=== PATIENT | female | born 1995 | race Caucasian/White ===

== ENCOUNTER 2021-12-27 07:08 | Emergency (ER) | payer SELFPAY ==
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
--- NOTE | 2021-12-27 07:37 | PC.NURSE ---
pt seen ambulating out of emergency dept.
== END 2021-12-27 07:37 | disposition left against medical advice (07) ==
LOC: ANHED 08:10
DX: Z53.21 Procedure and treatment not carried out due to patient leaving prior to being seen by health care provider (principal)
CPT/HCPCS: 99199

== ENCOUNTER 2023-09-03 09:30 | Emergency (ER) | payer OTHER, SELFPAY ==
--- NOTE | ~2023-09-03 | CT_ITS ---
EXAMINATION: CT abdomen pelvis wo con DATE: 09/03/2023 13:12 INDICATION: Abdominal and pelvic pain. TECHNIQUE: Computed tomography (CT) of the abdomen and pelvis was performed without intravenous contr ast. Automated exposure control and iterative reconstruction technique were employed. The dose-length product was 454.63 mGy-cm. COMPARISON: None. FINDINGS: The visualized portions of the lung bases are clear without pneumonia or pleural effusion. The heart size is normal. No pericardial effusion. The liver, gallbladder, spleen, pancreas, adrenal glands, and kidneys are normal. There is no urolithiasis. There are no dilated loops of bowel. The ap pendix is normal. There are no pathologically enlarged lymph nodes. There is physiologic fluid in the pelvis. There is mild lumbar spondylosis. IMPRESSION: 1. No etiology for the patient's symptoms. Reviewed, dictated and finalized at location [facility]. [employer]
[2023-09-03 09:40] VITALS: BP 134/72; PULSE 91; RESP 16; TEMP 36; O2SAT 100
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
[2023-09-03] MEDS: SODIUM CHLORIDE 0.9% IV 1,000 ML 999 ML IV CONT (10:43)
[2023-09-03] MEDS: MORPHINE SULFATE (*CRX) 2 MG/ML INJ IV PUSH (10:44)
[2023-09-03 10:51] LABS: Basophils Percent Auto 0.6 % (0.2-1.2); Eosinophils Absolute Auto 0.1 K/mm3 (0-0.3); Hematocrit 38.9 % (37.0-47.0); Hemoglobin 13.3 g/dL (12.0-15.0); Immature Granulocyte Absolute 0.01 K/mm3 (0.00-0.031); Immature Granulocyte Percent A 0.1 % (0-0.5); Lymphocytes Percent Auto 35.5 % (18.3-44.2); Mean Corpuscular HGB Conc 34.2 g/dl (32-36); Mean Corpuscular Hemoglobin 30.4 pg (26-34); Mean Corpuscular Volume 88.8 fl (80-100); Mean Platelet Volume 10.6 fl (7.4-10.4); Monocytes Absolute Auto 0.5 K/mm3 (0.1-0.6); Neutrophils Absolute Auto 3.9 K/mm3 (1.3-6.7); Neutrophils Percent Auto 54.8 % (45.5-73.1); Platelet Count Result 218 k/mm3 (150-375); Red Blood Count 4.38 M/mm3 (4.2-5.4); Red Cell Distribution Width 12.5 % (11.5-14.5)
[2023-09-03 11:03] LABS: Alanine Aminotransferase 14 U/L (6-35); Albumin Level 3.8 g/dL (3.5-5.1); Alkaline Phosphatase 54 U/L (38-126); Anion Gap 6 mmol/L (8-16); Aspartate Amino Transferase 19 U/L (14-36); Bilirubin,Total 0.5 mg/dL (0.2-1.3); Blood Urea Nitrogen 13 mg/dL (7-17); Calcium 8.9 mg/dL (8.4-10.2); Carbon Dioxide 27 mmol/L (22-30); Chloride 106 mmol/L (98-107); Estimated CRCL calculation 95 ml/min; Estimated Glomerular Filt Rate > 60; Glucose 63 mg/dL (65-110); Lipase 30 U/L (23-300); Potassium 3.5 mmol/L (3.4-5.0); Sodium 139 mmol/L (137-145)
[2023-09-03 11:21] LABS: Amorphous Sediment Urine Present; Appearance Urine Turbid (Clear); Bacteria Urine Rare /hpf; Bilirubin Urine Negative (Negative); Blood Urine Negative (Negative); Color Urine Yellow (Yellow); Glucose Urine UA Negative (Negative); Ketones Urine Negative (Negative); Leukocyte Esterase Ur Trace LEU/UL (Negative); Need Manual Microscopic Need Manual; Nitrate Urine Negative (Negative); Non Pathogenic Casts 0-2; Protein Urine Negative (Negative); Specific Grav Ur 1.021 (1.001-1.035); Squamous Epithelial Cell Urine Moderate /hpf (Few); pH Urine 7.5 (5.0-9.0)
[2023-09-03 11:29] LABS: Budding Yeast Urine Present /hpf
[2023-09-03 11:30] LABS: Add Urine Microscopic? YES
== END 2023-09-03 13:58 | disposition home or self-care (01) ==
PROVIDERS: Emergency Provider Nurse Practitioner Family
DX: N30.01 Acute cystitis with hematuria (principal); B37.31 Acute candidiasis of vulva and vagina
CPT/HCPCS: 36415; 74176; 80053; 81001; 81025; 83690; 85025; 87086; 87088; 96361; 96374; 99284; J2270; J7030

== ENCOUNTER 2023-12-16 16:17 | Emergency (ER) | payer SELFPAY ==
[2023-12-16 16:28] VITALS: BP 129/84; PULSE 65; RESP 18; TEMP 37.3; O2SAT 98
--- NOTE | 2023-12-16 16:29 | ED.PSYCH ---
HPI - Psych General Chief Complaint: Psychiatric Symptoms Stated Complaint: abn behavior Time Seen by Provider: 12/16/23 16:19 History of Present Illness HPI Narrative: Patient presenting here via EMS after using meth and she is telling me that she wants to see a therapist. She is denying any thoughts about hurting herself or anyone else, and she did also tell it ER nursing staff that she does not want to her herself or anyone. She just wants to see a therapist here. Denies any somatic complaints. Related Data Allergies Allergy/AdvReac Type Severity Reaction Status Date / Time Penicillins Allergy Swelling Verified 09/03/23 10:39 Review of Systems Review of Systems: CONST: No fever. HEENT: No sore throat C/V: No chest pain RESP: No cough GI: Reports abdominal pain, nausea, vomiting[, diarrhea] : No dysuria. M/S: No joint pain. SKIN: No rash. NEURO: [No headache or focal numbness or weakness] PSYCH: No SI or HI [facility] Social History Social History Substance use type: amphetamines Exam Narrative: EXAMINATION OF ORGAN SYSTEMS/BODY AREAS: Constitutional: Vital signs per nursing GENERAL:[No acute distress, non-toxic appearing.] HEAD: Normal with no signs of head trauma. EYES: EOMI, conjunctiva normal ENT: Hearing grossly intact LUNGS: Nonlabored breathing. HEART: [Regular rate and rhythm] ABD: [Soft], nontender to palpation EXT: Normal range of motion SKIN: [No rashes or lesions.] NEURO: [Aler. No gross focal sensory or strength deficits.] PSYCH: Denies SI/HI Course Vital Signs Vital signs: Vital Signs Temperature 99.1 F 12/16/23 16:28 Pulse Rate 65 12/16/23 16:28 Respiratory Rate 18 12/16/23 16:28 Blood Pressure 129/84 12/16/23 16:28 Pulse Oximetry 98 12/16/23 16:28 Oxygen Delivery Room Air 12/16/23 16:28 Temperature 99.1 F 12/16/23 16:28 Pulse Rate 65 12/16/23 16:28 Respiratory Rate 18 12/16/23 16:28 Blood Pressure 129/84 12/16/23 16:28 Pulse Oximetry 98 12/16/23 16:28 Oxygen Delivery Room Air 12/16/23 16:28 MDM - Psych MDM Narrative Medical decision making narrative: Patient presenting here stated that she wants to see a therapist, she denies any SI/HI. I did let her know that I am happy to call intake for her to be evaluated, however they will request blood work and urine test, she adamantly refused to get blood work done and states she just wants ice water and to go home. I did offer her again to try talking to intake to see if they will see her without the blood work, she refused this and states she just wants to see a therapist and she is agreeable to outpatient management at this time. I do feel she is stable for discharge at this time without any somatic complaints, she is in no distress, she has no SI/HI and she has confirmed this to both myself and to nursing staff. I did let her know she can always come back if she changes her mind about wanting be seen Discharge Plan Discharge Clinical Impression: Bizarre behavior Patient Disposition: Home, Self-Care Condition: Stable Instructions: Antibiotic Form, Stress (ED) Additional Instructions: Please follow-up with the mental health resources provided below, if you change your mind about wanting to be evaluated by intake in the hospital you can always return to the hospital. Prescriptions: No Action sulfamethoxazole-trimethoprim [Bactrim DS] 800-160 mg tablet 1 tablet PO Q12H 5 Days Qty: 10 0RF fluconazole 150 mg tablet 150 mg PO ONCE Qty: 2 0RF Rx Instructions: as a single dose. May repeat in 72 hours if needed. Follow-up/Referrals: [facility] [Outside] - 3 Days [facility] [Outside] - 3 Days PHYSICIAN,[facility] [Primary Care Provider] -
== END 2023-12-16 17:04 | disposition home or self-care (01) ==
PROVIDERS: Emergency Provider Emergency Medicine
DX: R46.89 Other symptoms and signs involving appearance and behavior (principal); F15.90 Other stimulant use, unspecified, uncomplicated
CPT/HCPCS: 99281

== ENCOUNTER 2024-08-01 20:25 | Emergency (ER) | payer MEDICAID, SELFPAY ==
[2024-08-01 20:33] VITALS: BP 136/78; PULSE 98; RESP 20; TEMP 37.1; O2SAT 100
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
[2024-08-01] MEDS: KETOROLAC (*BKC) 60 MG/2 ML VIAL IM (21:17)
[2024-08-01] MEDS: HYDROcodone/acetaminophen (*CRX) 5-325 MG TABLET 1 TAB PO (21:17)
[2024-08-01] MEDS: CYCLOBENZAPRINE HCL 5 MG TABLET PO (21:17)
== END 2024-08-01 21:37 | disposition home or self-care (01) ==
LOC: ANHED 21:13
PROVIDERS: Emergency Provider Emergency Medicine
DX: M54.50 Low back pain, unspecified (principal)
CPT/HCPCS: 96372; 99283; A9270; J1885